=== PATIENT | male | born 1980 | race Two or more races ===

== ENCOUNTER 2017-09-23 10:06 | Emergency (ER) | payer OTHER ==
[~2017-09-23] VITALS: Ht 175.3 cm; Wt 74.8 kg
[2017-09-23] MEDS ORDERED: ONDANSETRON 4 MG TAB.RAPDIS ONE ×2 (10:27→10:36)
[2017-09-23] MEDS ORDERED: ONDANSETRON 4 MG TAB.RAPDIS SL ONE (10:30)
[2017-09-23 11:08] VITALS: BP 118/60
--- NOTE | 2017-09-23 11:09 | NUR ---
Patient discharged to home in stable condition. Written and verbal after care instructions given. Patient verbalizes understanding of instruction.
== END 2017-09-23 11:19 ==
LOC: ER 10:08
DX: F11.20 Opioid dependence, uncomplicated (principal); R11.2 Nausea with vomiting, unspecified; F10.10 Alcohol abuse, uncomplicated; Y90.9 Presence of alcohol in blood, level not specified
CPT/HCPCS: 99283; A4606; Q0162; Z7610